=== PATIENT | male | born 1980 | race Caucasian/White ===

== ENCOUNTER 2017-01-14 03:52 | Emergency (ER) | payer MEDICAID, SELFPAY ==
[~2017-01-14] VITALS: Ht 162.6 cm; Wt 60.0 kg
[~2017-01-14 03:52] MED LIST: ACET500C PO; ASPI325T; LEXA1TAB PO; NICO14DI20 TD; NICO14DI3 TD; No Historical Meds; PERC5TAB8; PERC7.5T8; TRAZ50TA11 PO; ZOFR20TA PO
[2017-01-14] MEDS ORDERED: KEFL500C17 PO (07:20)
--- NOTE | 2017-01-14 07:54 | REP ---
Clinical: Trauma. Technique: AP, lateral, bilateral oblique views right hand . Findings: The osseous structures and joint spaces are intact and normal. There is no evidence for acute fracture or dislocation. Surrounding soft tissues are unremarkable. No subcutaneous emphysema or radiodense foreign body. Impression: No foreign body. No acute fracture or dislocation. Signed by Dirk Subramanian MD 01/14/2017 07:45 A
[2017-01-14 08:01] VITALS: BP 146/103
== END 2017-01-14 08:04 | disposition home or self-care (01) ==
LOC: EDBD 03:52 → M ED 03:52
DX: S61.411A Laceration without foreign body of right hand, initial encounter (principal); X58.XXXA Exposure to other specified factors, initial encounter; Y92.9 Unspecified place or not applicable; Y93.89 Activity, other specified; Y99.9 Unspecified external cause status; Z86.19 Personal history of other infectious and parasitic diseases; F33.9 Major depressive disorder, recurrent, unspecified; F17.200 Nicotine dependence, unspecified, uncomplicated; Z79.899 Other long term (current) drug therapy